=== PATIENT | male | born 1980 | race Caucasian/White ===

== ENCOUNTER 2019-10-09 22:05 | Emergency (ER) | payer OTHER ==
[~2019-10-09] VITALS: Ht 180.3 cm; Wt 85.0 kg
--- NOTE | 2019-10-09 22:07 | NUR ---
MT: (TANJA) WOULD LIKE TO BE UPDATED AT SOME POINT - [phone]
--- NOTE | 2019-10-09 22:12 | NUR ---
Pt bib ems c/o seizure like activity. Pt reports 30-60 seconds of convulsions while laying in bed. Pt a&ox3 (stated it was tuesday night) on arrival. Pt reoriented. Seizure precautions in place. Pt reported to ems that there was some confusion about how much pain medication he took today. Pt has been out of pain meds for approx 2 weeks, recieved a refill today.
[2019-10-09 22:26] VITALS: BP 130/80
--- NOTE | 2019-10-09 22:27 | NUR ---
CT DELAY, PT NEED IV FIRST.
[2019-10-09] MEDS ORDERED: LORazepam 2 MG/ML, 1ML IVPush ONE (22:30)
[2019-10-09] MEDS ORDERED: PLEASE ENTER ALLERGIES MC SCH (22:30)
[2019-10-09] MEDS ORDERED: SODIUM CHLORIDE FLUSH 10ML SYR IVF ONE (22:30)
--- NOTE | 2019-10-09 22:30 | NUR ---
TASK RN: PT SITTING UP IN GURMA[place]PP[place], AWAKE/ALERT W/ FLAT AFFECT. LIMITED HISTORY/HPI OFFERED BY PT. REPORTS MILD KEARNEY, DENIES CHANGES IN VISION/NAUSEA. SZ PRECAUTIONS IN PLACE. BP/SPO2/ECG MONITORING IN PLACE. NSR ON MONITOR.
--- NOTE | 2019-10-09 22:41 | NUR ---
Pt transported to ct
[2019-10-09 23:06] LABS: BASOPHILS # (AUTO) 0.01 x10^3/uL (0-0.1); BASOPHILS % (AUTO) 0 % (0-1); EOSINOPHILS # (AUTO) 0.01 x10^3/uL (0-0.4); EOSINOPHILS % (AUTO) 0 % (1-7); LYMPHOCYTES # (AUTO) 0.82 x10^3/uL (1-3.4); LYMPHOCYTES % (AUTO) 8 % (22-44); MD NO; MEAN CORPUSCULAR HEMOGLOBIN 30.2 pg (27.5-34.5); MEAN CORPUSCULAR HGB CONC 33.3 g/dL (33.2-36.2); MEAN CORPUSCULAR VOLUME 90.7 fL (81-97); MEAN PLATELET VOLUME 8.3 fL (7.4-10.4); MONOCYTES # (AUTO) 0.35 x10^3/uL (0.2-0.8); MONOCYTES % (AUTO) 4 % (2-9); NEUTROPHILS # (AUTO) 8.71 x10^3/uL (1.8-6.8); NEUTROPHILS % (AUTO) 88 % (42-75); PLATELET COUNT 250 x10^3/uL (130-400); RED BLOOD COUNT 5.05 x10^6/uL (4.38-5.82); RED CELL DISTRIBUTION WIDTH 13.9 % (9.4-14.8)
[2019-10-09 23:14] LABS: ALBUMIN 3.6 g/dL (3.4-5.0); ANION GAP 8 mmol/L (5-15); CALCIUM 8.7 mg/dL (8.5-10.1); CHLORIDE 107 mmol/L (98-107)
[2019-10-09 23:15] LABS: SALICYLATE LEVEL < 1.7 mg/dL (2.8-20.0)
[2019-10-09 23:17] LABS: ALANINE AMINOTRANSFERASE 26 U/L (12-78); ALKALINE PHOSPHATASE 90 U/L (45-117); BILIRUBIN,TOTAL 0.5 mg/dL (0.2-1.0); CREATININE 1.17 mg/dL (0.7-1.3); TOTAL PROTEIN 7.1 g/dL (6.4-8.2)
--- NOTE | 2019-10-09 23:50 | NUR ---
Asked pt to provide urine sample, states he is unable at this time.
--- NOTE | 2019-10-10 00:38 | NUR ---
Pts contacted per pt request for dc transportation. Pt ambulated to dc desk without difficulty
== END 2019-10-10 00:41 | disposition home or self-care (01) ==
LOC: ED 23:36
DX: R56.9 Unspecified convulsions (principal); R41.0 Disorientation, unspecified; R55 Syncope and collapse; R94.31 Abnormal electrocardiogram [ECG] [EKG]
CPT/HCPCS: 36415; 70450; 80053; 80307; 85025; 93005; 99285